=== PATIENT | female | born 1990 | race Caucasian/White ===

== ENCOUNTER → 2024-12-13 | Emergency (ER) | payer BC ==
[~2024-12-13] VITALS: Ht 172.7 cm; Wt 88.6 kg
[~2024-12-13] MED LIST: MESSAGE TO NURSING IV ONE; NITR100C6 PO; RANI-648 PO; heparin 10,000 units/1 ML INJ IV PRN; heparin 25,000 UNIT/250ml bag 250 ML IV PRN; iohexol 350MG/ML 100ml bottle IV ONE
--- NOTE | 2024-12-13 06:32 | ELECTROCARDIOGRAPH REPORT ---
[facility] Test Date: 2024-12-13 Test Time: 06:30:23 Pat Name: REMY FLETCHER Department: EMERGENCY ROOM Patient ID: [id number] Room: Gender: F Sales Coordinator: PM : 1990 Requested By: ELENA MERCADO Order Number: [id number] Reading MD: Dr. Shahbaz Marie Measurements Intervals [place] Rate: 115 P: 66 [place]: 155 QRS: 41 QRSD: 93 T: -14 QT: 336 QTc: 465 Interpretive Statements Sinus tachycardia Probable left atrial enlargement Nonspecific T abnormalities, diffuse leads Electronically Signed On 12-14-2024 10:24:[address] Shahbaz Marie Please click the below link to view image of tracing.
--- NOTE | 2024-12-13 06:39 | Physician Documentation ---
History of Present Illness ~ Stated Complaint: CHEST PAIN Time Seen by MD: 06:50 Primary Medical Doctor: MUKESH [facility] This is a very pleasant 34-year-old female with no significant risk factors who comes in for evaluation of shortness a breath at suddenly woke her from sleep in the middle of the night approximately 6 hours prior to arrival. No obvious trigger provocation. The particular palliating factors. It is exertional in its nature. It is accompanied by substernal chest pain that is moderate to severe in its intensity. Nonradiating, not migratory. Did not attempt to treat it. She does report that four weeks ago she had a foot surgery, she is still in immobilizer but. No family history of blood clots, DVT, PE, factor five [place]. She occasionally smokes marijuana, but does not do tobacco, sympathomimetics. Medication Reconciliation Allergies: Coded Allergies: No Known Allergies (Unverified , 05/21/14) Scheduled Nitrofurantoin Monohyd/M-Cryst (Macrobid 100 mg Capsule), 1 CAP PO BID Ranitidine HCl (Zantac), 1 TABLET PO ONCE Past Medical History Past Medical History: No Pertinent History Past Surgical History: no surgical history Alcohol Use: None Drug Use: none Lives with: Spouse Lives In: Home Review of Systems ROS 10 point review of systems was performed and unless noted above in HPI is negative for acute process/complaint. Physical Exam Physical Exam GENERAL: Awake, alert, oriented, GCS 15, no apparent distress, non-toxic appearing, answers questions, follows commands appropriately. Examined in triage and subsequently placed in bed 3. HEENT: Atraumatic, normocephalic, pupils equal, extraocular muscles intact, sclerae anicteric, mucus membranes moist, oropharynx is clear, no stridor. NECK: supple, full active range of motion, trachea midline, no thyromegaly, no lymphadenopathy, no JVD. CARDIOVASCULAR: Tachycardic and regular rate/rhythm, no murmurs/gallops/rubs, Pulses are 2+ in all extremities and symmetric. Capillary refill less than 2 seconds. PULMONARY: Nonlabored, good air movement ,no respiratory distress, speaking in full sentences, clear to auscultation bilaterally, no wheezing, no ronchi, no rales, no accessory muscle use. GASTROINTESTINAL: Soft, non-tender, non-distended, normal active bowel sounds, n o organomegaly, no pulsatile masses, no CVA tenderness. NEUROLOGIC: Lucid with normal mental status. Normal facial symmetry. Moves all extremities symmetrically and with purpose. No truncal ataxia. Speech is fluid without evidence of dysarthria or aphasia, no focal deficits appreciated. MUSCULOSKELETAL: There is full range of motion of all extremities. There is no joint pain or joint swelling or joint erythema. There is no muscle pain or tenderness or swelling. EXTREMITIES: warm, well-perfused, no cyanosis, no clubbing, no edema, no acute deformities. Skin: warm, dry, no rashes or lesions, no jaundice, no petechiae orpurpura. No ecchymosis. PSYCHIATRIC: Normal affect, normal insight, normal concentration. Focused exam: [] Progress Results/Orders Results/Orders Orders - AIME MERCADO DO Chest,Single View (12/13/24 06:27) Monitor (12/13/24 06:27) Saline Lock (12/13/24:27) Oxygen (12/13/24 06:27) Cta Chest Pe (12/13/24 07:40) Heparin 10,000 Unit/Ml 1ml (Heparin 10,0 (12/13/24 07:40) Cbc/Diff (12/14/24 03:00) Cbc/Diff (12/15/24 03:00) Cbc/Diff (12/16/24 03:00) Cbc/Diff (12/17/24 03:00) Cbc/Diff (12/18/24 03:00) Heparin 25,000 Unit/250ml Bag (Heparin 2 (12/13/24 07:55) Cardiac Ptt (12/13/24 14:35) Completed Orders - AIME MERCADO DO Chest,Single View (12/13/24 06:27) Cbc/Diff (12/13/24 06:27) BMP (12/13/24 06:27) PBNP (12/13/24 06:27) Electrocardiogram (12/13/24 06:27) Hs Troponin I W Calculations (12/13/24 06:27) Hs Troponin I W Calculations (12/13/24 08:27) Hs Troponin I W Calculations (12/13/24 09:27) Cta Chest Pe (12/13/24 07:40) Hcg, Ur Ql (12/13/24 06:47) Morphine 4mg/Ml Inj. (Morphine Inj.) (12/13/24 06:50) Normal Saline 1000ml (Sodium Chloride 10 (12/13/24 06:50) Iohexol 350mg/Ml 100ml (Omnipaque 350mg/ (12/13/24 07:04) Heparin Drip Dvt/Pe*Rph Dose (Heparin (12/13/24 07:40) Pt Inr (12/13/24 07:39) PTT (12/13/24 07:39) Heparin 10,000 Unit/Ml 1ml (Heparin 10,0 (12/13/24 07:40) Heparin 25,000 Unit/250ml Bag (Heparin 2 (12/13/24 07:40) Message To Nursing (12/13/24 08:00) Normal Saline 1000ml (Sodium Chloride 10 (12/13/24 09:40) Ondansetron Inj. (Zofran 4mg/2ml Vial) (12/13/24 09:40) Alteplase 50mg Inj. (Activase 50mg Inj.) (12/13/24 14:45) Medications Received in ER Medications (Trade) Dose Ordered Sig/Marianne Route PRN Reason Start Time Stop Time Status Last Admin Dose Admin (heparin 10,000 unit/ml 1ml inj) 7,100 units ONCE ONCE IV 12/13/24 07:40 12/13/24 11:23 DC 12/13/24 08:00 7,100 UNITS Heparin Sodium/ Dextrose 250 ml @ 16 mls/hr [id number] PRN IV TO MAINTAIN PTT WITHIN RANGE 12/13/24 07:55 12/13/24 08:06 16 MLS/HR Sodium Chloride 1,000 ml @ 1,000 mls/hr ONCE ONCE IV 12/13/24 09:40 12/13/24 11:23 DC 12/13/24 09:44 1,000 MLS/HR (Zofran 4mg/2ml vial) 8 mg ONCE ONCE IM 12/13/24 09:40 12/13/24 11:23 DC 12/13/24 09:45 8 MG Vital Signs 12/13/24 12/13/24 12/13/24 12/13/24 06:29 06:45 06:48 07:08 Temp 97.2 97.2 Pulse 112 111 Resp 17 17 18 27 B/P (MAP) 99/70 98/68 (78) Pulse Ox 98 97 12/13/24 12/13/24 07:14 09:16 Temp 97.2 Pulse 108 Resp 27 17 B/P (MAP) 91/71 (78) Pulse Ox 98 Laboratory Tests Test 12/13/24 06:31 12/13/24 06:55 12/13/24 08:40 12/13/24 09:52 White Blood Count 16.1 H Red Blood Count 4.65 Hemoglobin 13.4 Hematocrit 40.2 Mean Corpuscular Volume 86.4 Mean Corpuscular Hemoglobin 28.9 Mean Corpuscular Hemoglobin Concent 33.4 Red Cell Distribution Width 13.5 Platelet Count 243 Mean Platelet Volume 8.3 Neutrophils (%) (Auto) 84.5 H Lymphocytes (%) (Auto) 12.2 L Monocytes (%) (Auto) 2.5 Eosinophils (%) (Auto) 0.3 Basophils (%) (Auto) 0.5 Neutrophils # (Auto) 13.6 H Lymphocytes # (Auto) 2.0 Monocytes # (Auto) 0.4 Eosinophils # (Auto) 0.0 Basophils # (Auto) 0.1 CBC Comment Prothrombin Time 10.0 INR International Normalized Ratio 1.0 Activated Partial Thromboplast Time 26 Coagulation Comments Sodium Level 137 Potassium Level 4.4 Chloride Level 104 Carbon Dioxide Level 19.9 L Anion Gap 13 Blood Urea Nitrogen 14 Creatinine 1.18 H Estimated GFR/1.73 m2 52 BUN/Creatinine Ratio 11.9 Glucose Level 241 H Calcium Level 8.8 Troponin I High Sensitivity 1127 *H 1570 *H 1346 *H Pro-B-Type Natriuretic Peptide 1986 H Albumin 3.0 L Chemistry Comments Urine HCG, Qualitative Negative Troponin I High Sens Percent Delta 39 14 Troponin I Hi Sens Absolute Change 443 -224 EKG/XRAY/CT/US/VASC/MRI EKG : Additional Comment EKG obtained protocol and interpreted by myself shows sinus tachycardic, rate of 115, normal DE interval, narrow QRS, no QT prolongation, normal axis, S1 Q3 T3 noted. No STEMI. Medical Decision Making Findings Facility Status: ED Holds, E process The plan was discussed with the patient, who demonstrates clear understanding of the plan and is in agreement with the plan unless otherwise noted in the chart. All questions have been answered, all concerns were addressed unless otherwise documented. I was available throughout their ED stay for frequent reassessment and q uestions. Differential Diagnoses (considered and possible or likely): [Differential d iagnosis considered includes chest wall pain, pleurisy, pneumonia, pulmonary embolus, GERD, esophagitis, gastritis, anxiety, stress reaction, costochondritis, acute coronary syndrome, aortic dissection, pericarditis, myocarditis, or pneumothorax.] ??Differential Diagnoses (considered and unlikely, not requiring evaluation currently): [Aortic/great vessels dissection was considered but it is unlikely based on absence of ripping, tearing, migratory chest pain, absence of syncope or focal neurologic deficits, physical examination indicating equal and symmetric pulses.] MDM Data Please see [facility] for the following: Independent Historians and external Records Review. Historian: [Patient] Independent Historians: ?[Has been, record review] Medication Management: [Reviewed medication list] Social History and determinants: [Reviewed] Please see the body of the note for the following: Any independent interpr etations of ECG, imaging studies. All vitals signs/haemodynamics, ordered tests were independently reviewed and interpreted by myself. Nursing triage complaint and vitals reviewed, additional nursing notes were reviewed as available and I agree unless otherwise noted or documented in contradiction in the chart Vital Signs: Independently reviewed Labs: Independently interpreted Imaging: Independently interpreted Old Medical Records: Independently reviewed, see [facility] for relevant summary and information Pulse Oximetry: [97%] interpreted as [normal on room air] by me [Deck Hand: Tachycardic Rate, Regular rhythm, no ectopy, sinus tachycardia. reviewed and interpreted by me] Additionally notably showing: [Hemodynamics reviewed. The patient is not febrile, tachycardic, with a soft blood pressures, tachypneic, not hypoxic. CBC shows leukocytosis 94% neutrophilic predominance. Chemistry shows mild BALTAZAR, elevated glucose, elevated BNP and markedly elevated troponin. This is concerning for either NSTEMI or right heart strain. She is not . CT angiography of the chest was performed and on my independent interpretation there is a very large clot burden with a saddle PE in the right heart strain. Radiology read isn't available with a this time.] Tests considered but not ordered include: [D-dimer has been considerably given tachycardia, recent surgery, and S1 Q3 T3 on EKG, we will obtain CTA] Social Determinants of Health Impact: Patient was evaluated in [facility], or [facility] [place] to healthcare due to below par ratio of patient to medical providers. [] Comorbid Conditions Impacting Present Evaluation and Care/Treatment: [Patient is on control, recent surgery] Management Discussions with other Healthcare Providers: [Transfer center, human services program specialist Anup mancuso who discussed the case with the interventional radiology at his facility and requests we administer half dose, 50 mg, of alteplase] Treatment and Disposition Medication Management (Given or considered): [Heparin drip]. See EMR for details Consideration for Hospitalization/Escalation/Deescalation of Care: Transfer for critical care management IR evaluation is necessary for management of the submassive PE with a borderline hemodynamics. ?ED Course:?[Unfortunately patient's blood pressure did not significantly improve and remained fairly low despite of fluid resuscitation.] ?Shared decision making:?[] Code status:?FULL Please see the full Electronic Medical Record for full details of nursing documentation, medications list, other records of complete past medical history and conditions, vital signs, laboratory studies, and any radiologic study interpretations by radiologists. Portions of this note were completed using Medication Review dictation software and as a result there may exist minor errors in spelling. I have reviewed elements of past family and social history and agree as included in note. Departure Impression: Primary Impression: Saddle pulmonary embolus Additional Impressions: Elevated troponin Elevated brain natriuretic peptide (BNP) level Condition: Critical Referrals: NO PRIMARY CARE PROVIDER (PCP) Education Educated: Patient, Family Educated regarding: diagnosis, treatment, prognosis, other (Need for transfer) Critical Care Note Critical Care Note CRITICAL CARE TIME: [75 ] minutes Treatments/Evaluations: Close monitoring and treatment of unstable vital signs, cardiorespiratory, and neurologic status, while maintaining tight balance of fluid, respiratory, and cardiac interventions. This time includes discussing the case with the patient and the patients family. This time does not include all procedures stated elsewhere in this record. This time also includes reviewing old records, labs and radiological studies. This time includes examining and re- examining the patient. Additionally, this time also includes arranging care with admitting and consulting physicians. Signature Scribe Signature: No scribe Attestation: This note accurately reflects clinical decisions, work performed by myself, Aime Mercado, AIME VANEGAS DO Dec 13, 2024 06:39
[2024-12-13 06:48] LABS: BASOPHILS # (AUTO) 0.1 X10'3 (0-0.2); BASOPHILS % (AUTO) 0.5 % (0-1); EOSINOPHILS % (AUTO) 0.3 % (0-6); HEMATOCRIT 40.2 % (35.0-45.0); HEMOGLOBIN 13.4 g/dl (12.0-16.0); LYMPHOCYTES % (AUTO) 12.2 % (21-51); MEAN CORPUSCULAR HEMOGLOBIN 28.9 PG (27.0-31.0); MEAN CORPUSCULAR HGB CONC 33.4 g/dL (33.0-36.5); MEAN CORPUSCULAR VOLUME 86.4 FL (78-98); MEAN PLATELET VOLUME 8.3 FL (7.4-10.4); MONOCYTES # (AUTO) 0.4 X10'3 (0-0.9); MONOCYTES % (AUTO) 2.5 % (2-12); NEUTROPHILS # (AUTO) 13.6 X10'3 (1.8-7.7); NEUTROPHILS % (AUTO) 84.5 % (42-75); PLATELET COUNT 243 X10'3 (140-440); RED BLOOD COUNT 4.65 X10'6 (4.20-5.60); RED CELL DISTRIBUTION WIDTH 13.5 % (11.5-14.5); WHITE BLOOD COUNT 16.1 X10'3 (4.5-11.0)
--- NOTE | 2024-12-13 06:56 | RADIOLOGY REPORT ---
EXAM: XR Chest, 1 View CLINICAL INDICATION: Pain TECHNIQUE: Frontal view of the chest. COMPARISON: No relevant prior studies available. FINDINGS: LUNGS AND PLEURAL SPACES: Unremarkable. No consolidation. No pneumothorax. HEART: Unremarkable. No cardiomegaly. MEDIASTINUM: Unremarkable. Normal mediastinal contour. BONES/JOINTS: Unremarkable. No acute fracture. IMPRESSION: No acute cardiopulmonary process.
[2024-12-13] MEDS: morphine 4 MG/ML inj SYRINge IV ONE (07:08)
[2024-12-13] MEDS: normal saline 1000ml 1,000 ML IV ONE ×2 (07:08→09:44)
[2024-12-13 07:10] LABS: ANION GAP 13 (8-16); BLOOD UREA NITROGEN 14 MG/DL (7-18); BUN/CREATININE RATIO 11.9 (10.0-20.0); CALCIUM 8.8 MG/DL (8.5-10.1); CHLORIDE 104 MMOL/L (99-107); CREATININE 1.18 MG/DL (0.40-0.90); GLUCOSE 241 MG/DL (70-104); POTASSIUM 4.4 MMOL/L (3.5-5.1); PRO BRAIN NATRIURETIC PEPTIDE 1986 PG/ML (0-125); SODIUM 137 MMOL/L (135-145); TOTAL CARBON DIOXIDE 19.9 MMOL/L (24-32); eCRCL 68 ML/MIN; eGFR 52 ML/MIN
[2024-12-13 07:32] LABS: URINE HCG NEGATIVE (NEG)
[2024-12-13] MEDS: heparin 10,000 units/1 ML INJ IV ONE (08:00)
[2024-12-13] MEDS: heparin 25,000 UNIT/250ml bag 250 ML IV PRN (08:06)
[2024-12-13 08:11] LABS: APTT 26 SECONDS (22-32)
--- NOTE | 2024-12-13 08:15 | RADIOLOGY REPORT ---
CTA Chest with intravenous contrast INDICATION: SOb, post op, tachy COMPARISON: Chest radiograph performed earlier same date. TECHNIQUE: Multidetector spiral CTA of the chest was performed of the chest with 100 cc of Omnipaque 350 intravenous contrast. PULMONARY ANGIOGRAPHY PROTOCOL was utilized using a bolus-tracking techniqu e centered on the main pulmonary artery. Coronal and sagittal multiplanar and MIP reformats were perf ormed. Radiation Dose : 1. Chest: CTDI volume is 18.6 mGy. Dose-length product is 591.8 mGy*cm The dose indicators for CT are the volume Computed Tomography (CT) Dose Index (CTDIvol) and the Dose Length Product (DLP), and are measured in units of mGy and mGy-cm, respectively. These indicators are not patient dose, but values generated from the CT scanner acquisition factors. The report includes radiation exposure data for exposures received during this examination. FINDINGS: Pulmonary artery: There are several filling defects for example in the main pulmonary artery, right a nd left pulmonary arteries and all of the lobar and segmental branches in the right and left pulmonar y arteries. The main pulmonary artery measures 3.2 cm, slightly dilated. Lower neck: Unremarkable thyroid. No neck mass. Lungs: No focal pulmonary consolidation. No suspicious nodule or mass. Central airways: Patent. Pleura: No pneumothorax. No pleural effusions. Heart/Vascular Structures: The heart is enlarged. RV to LV ratio measures 1.4. No pericardial effusi on. Thoracic aorta is normal in caliber. No aneurysm or dissection. Lymph Nodes: No mediastinal or hilar lymphadenopathy. Esophagus:Grossly unremarkable. Musculoskeletal: Unremarkable. Body wall: Unremarkable. Upper abdomen: Unremarkable. IMPRESSION: 1. Saddle pulmonary embolism and several pulmonary emboli involving the entire bilateral pulmonary ar terial tree. RV to LV ratio measures 1.4 consistent with right heart strain. Mild cardiomegaly.
[2024-12-13] MEDS: HEPARIN DRIP DVT/PE -**PHARMACIST TO DOSE IV ONE (08:19)
[2024-12-13] MEDS: MESSAGE TO NURSING IV ONE (08:20)
[2024-12-13 09:16] VITALS: TEMP 97.2
[2024-12-13] MEDS: ondansetron/PF 4mg/2ml inj IM ONE (09:45)
[2024-12-13 15:59] VITALS: BP 113/82; PULSE 114; RESP 23; O2SAT 97
== END | disposition home or self-care (01) ==
LOC: ER 06:26
DX: I26.92 Saddle embolus of pulmonary artery without acute cor pulmonale (principal); R79.89 Other specified abnormal findings of blood chemistry; Z79.899 Other long term (current) drug therapy
CPT/HCPCS: 36415; 71045; 71275; 80048; 81025; 83880; 84484; 85025; 85610; 85730; 93005; 96361; 96365; 96366; 96367; 96372; 96375; 96376; 99291; 99292; J1644; J2270; J2405; J2997; J7030; Q9967

== ENCOUNTER 2025-01-14 20:08 | Emergency (ER) | payer BC ==
[~2025-01-14] VITALS: Ht 172.7 cm; Wt 79.4 kg
[~2025-01-14 20:08] MED LIST changes: -MESSAGE TO NURSING IV ONE; -heparin 10,000 units/1 ML INJ IV PRN; -heparin 25,000 UNIT/250ml bag 250 ML IV PRN; -iohexol 350MG/ML 100ml bottle IV ONE
[2025-01-14 20:14] VITALS: BP 131/84; PULSE 72; RESP 15; O2SAT 99
--- NOTE | 2025-01-14 22:36 | ELECTROCARDIOGRAPH REPORT ---
[facility] Test Date: 2025-01-14 Test Time: 22:34:28 Pat Name: REMY FLETCHER Department: [facility] Patient ID: [id number] Room: Gender: F Tree Pruner: : 1990 Requested By: MAT GONSALES Order Number: [id number] Reading MD: Dr. Shahbaz Marie Measurements Intervals [place] Rate: 60 P: 56 [place]: 151 QRS: 79 QRSD: 89 T: 42 QT: 415 QTc: 415 Interpretive Statements Sinus rhythm Electronically Signed On 01-14-2025 22:57:[address] Shahbaz Marie Please click the below link to view image of tracing.
--- NOTE | 2025-01-14 22:56 | RADIOLOGY REPORT ---
CHEST RADIOGRAPH Indication: right chest pain with inspiration, covid + Technique: Single frontal view of the chest was obtained Comparison: CT CTA CHEST PE W/ IV CONTRAST on DOS: 12/13/24, DI CHEST,SINGLE VIEW on DOS: 12/13/24 FINDINGS: Lines and Tubes: None Lungs: No focal consolidation. Pleura: No effusion or pneumothorax. Cardiomediastinal contours: Unremarkable Bones: No acute osseous abnormality. IMPRESSION: 1. No acute cardiopulmonary disease.
--- NOTE | 2025-01-14 23:31 | Physician Documentation ---
History of Present Illness ~ Chief Complaint: Cold, cough & congestion Stated Complaint: COLD/FLU SYMPTOMS Time Seen by MD: 22:01 OK to notify your PCP?: Yes Primary Medical Doctor: MUKESH Source: patient Mode of Arrival: POV Exam Limitations: no limitations HPI 34-year-old female presents with right-sided chest pain which is worse with a deep breath which radiates into her back. She has a history of pulmonary em bolism his last hot hospitalized last month here for it. She has been taking Eliquis 5 mg twice daily ever since. She did have a CT of her chest as well as the ultrasound of her leg through [facility] last week but has not received the results yet. She is positive for COVID and is concerned for a possible PE or pneumonia. She denies any cough, fevers. She has had a sore throat and a headache but states that her symptoms currently do not feel like when she had a PE or when she had prior COVID infections. Medication Reconciliation Allergies: Coded Allergies: No Known Allergies (Unverified , 05/21/14) Scheduled Nitrofurantoin Monohyd/M-Cryst (Macrobid 100 mg Capsule), 1 CAP PO BID Ranitidine HCl (Zantac), 1 TABLET PO ONCE Past Medical History Past Medical History: No Pertinent History Past Surgical History: no surgical history Last Menstrual Period: Dec 17, 2024 Alcohol Use: None Drug Use: none Lives with: Spouse Lives In: Home Review of Systems All Other Systems at this time: Reviewed and Negative Physical Exam Vital Signs: RN Vital Signs have been reviewed: Yes, Temperature: 96.8, Source: Temporal, Heart Rate: 72, Respiratory Rate: 15, BP: 131/84, Pulse Oximetry: 99, Weight: 79.400 Pulse Oximetry Reflects: adequate oxygenation Physical Exam General: Alert, no apparent distress. HEENT: PERRL, EOMI, no injection, moist mucous membranes. Neck: Full range of motion. Respiratory: Lungs clear, no respiratory distress. Chest: No accessory muscle use. Cardiovascular: Regular rate and rhythm, no murmurs. Gastrointestinal: Soft, nontender, nondistended. Bowels sounds present. Extremities: Normal range of motion, no deformity. Walking boot to left lower extremity. Neurologic: Oriented x4. Psychiatric: Normal mood and affect. Skin: Normal color, warm and dry. No edema, no ecchymosis. Progress Results/Orders Reviewed/noted all lab results: Yes Results/Orders Orders - MADAI WILLETT DIRECTOR STAGE Chest,Single View (01/14/25 22:29) Electrocardiogram (01/14/25 22:21) Completed Orders - MADAI WILLETT DIRECTOR STAGE Chest,Single View (01/14/25 22:29) Electrocardiogram (01/14/25 22:21) Vital Signs 01/14/25 20:14 Temp 96.8 Pulse 72 Resp 15 B/P (MAP) 131/84 Pulse Ox 99 EKG/XRAY/CT/US/VASC/MRI EKG : Additional Comment Electrocardiogram: as interpreted by me; normal sinus rhythm, no axis deviation, no acute ischemia, normal intervals, no pre-excitation pattern. Rate: 60. Chest X-Ray : Additional Comments Chest x-ray: as interpreted by me; no large effusion, no large infiltrate, normal mediastinum. Heart Score: Heart Score Response (Comments) Value History N/A 0 EKG Normal 0 Age <45 0 Risk Factors No known risk factors 0 Troponin N/A 0 Total 0 Medical Decision Making Additional info obtained from: old records Findings 34-year-old female with a history of PE presents with right chest pain worse on inspiration. She does have some pain when palpating the area as well. She is sick with COVID at this time but states her symptoms do not feel like any prior COVID infections or when she had PE. She is currently taking Eliquis 5 mg twice daily. Her physical exam is unremarkable. Her EKG was normal as well as her chest x-ray today. I discussed this case with Dr. Marie regarding need for further imaging and he recommends no further imaging needed at this time. She does have a CT and ultrasound results pending with [facility]. At this time there is no further indication for a full PE study. We discussed the if she feels any worse to return here immediately. We discussed supportive measures at home for COVID. Differential Diagnosis Pleural effusion. Pneumothorax. Pneumonia. Pleuritis. AAA. Departure Disposition: HOME / SELF CARE / HOMELESS Impression: Primary Impression: Viral respiratory illness Condition: Stable Discharge Instructions: Viral Illness, Adult Additional Instructions: Follow up with her primary care provider within the next week and return back here for any new or worsening symptoms. Referrals: NO PRIMARY CARE PROVIDER (PCP) Education Educated: Patient Educated regarding: diagnosis, treatment, prognosis, need for follow up Additional Comment Medical Screen Exam This patient recieved a medical screening examination. After reviewing the individual's medical complaints with presenting symptoms and performing an appropriate physical examination, it was determined that no immediate life- threatening emergency medical condition is present. This individual is also not a women having contractions. Signature Scribe Signature: . Attestation: Scribed for Madai Willettp by Madai Chang NP . 01/14/25 23:38 Parts of this note were created using EverPresent voice recognition software program. While efforts were made to correct any mistakes made by this voice recognition software program, nonsensical phrases may remain in this note. In addition, there may be errors and syntax, grammar, content and spelling. MADAI WILLETTP Jan 14, 2025 23:31
[2025-01-14 23:37] VITALS: TEMP 96.8
== END 2025-01-14 23:39 | disposition home or self-care (01) ==
LOC: ER 20:08
DX: J98.8 Other specified respiratory disorders (principal); Z79.01 Long term (current) use of anticoagulants; Z86.711 Personal history of pulmonary embolism
CPT/HCPCS: 71045; 93005; 99283

== ENCOUNTER 2025-03-28 16:25 | Emergency (ER) | payer BC ==
[~2025-03-28] VITALS: Ht 172.7 cm; Wt 100.0 kg
[2025-03-28 16:42] VITALS: TEMP 97.7
--- NOTE | 2025-03-28 16:49 | Physician Documentation ---
History of Present Illness ~ Chief Complaint: Chest Pain Stated Complaint: CP Time Seen by : 20:03 Primary Medical Doctor: [facility] Patient is a pleasant 34-year-old female that presents to the emergency department for evaluation of chest pain. Patient reports that she was seen here in November and diagnosed with a PE was very sick at that time. Patient was put on Eliquis. She just stopped her Eliquis yesterday. Patient reports that she has has had intermittent chest pain over the last month or 2 but today the pain is medial substernal radiating to the left hand side. She reports that the pain is slightly different than the pain that she felt when she had a PE. Patient denies any shortness of breath at this time. History as above. They suspect that her pulmonary embolism was result of control as well as recent bunion surgery. She had to be flown to tertiary care facility last time but did not require thrombectomy. TPA administered upon her diagnosis of pulmonary embolism last time. Medication Reconciliation Allergies: Coded Allergies: No Known Allergies (Unverified , 05/21/14) Scheduled Nitrofurantoin Monohyd/M-Cryst (Macrobid 100 mg Capsule), 1 CAP PO BID Ranitidine HCl (Zantac), 1 TABLET PO ONCE Past Medical History Past Medical History: No Pertinent History Past Surgical History: no surgical history Alcohol Use: None Drug Use: none Lives with: Spouse Lives In: Home Review of Systems ROS All review of systems negative except as per HPI Physical Exam Vital Signs: Temperature: 97.7, Source: Temporal, Heart Rate: 69, Respiratory Rate: 18, BP: 138/102, Pulse Oximetry: 99, Weight: 100.000 Physical Exam General: Patient is awake, alert, oriented x4 in no acute distress and well appearing.~ Head: Normocephalic and atraumatic. Eyes: Conjunctival normal. EOMI. PERRL. ENT: Mucous membranes moist. Neck: Supple, trachea is midline. Chest: Clear to auscultation bilaterally without rales, rhonchi, or wheezes. There is no accessory muscle use or retractions. Cardiac: RRR without murmurs, gallops, or rubs. Extremities: Normal strength. Normal range of motion. No deformities or edema. No calf tenderness to palpation Progress Results/Orders Results/Orders Completed Orders - DONI CANDELARIA MD D-Dimer (03/28/25 20:10) Vital Signs 03/28/25 03/28/25 03/28/25 16:42 18:58 19:23 Temp 97.7 Pulse 69 80 Resp 18 14 16 B/P (MAP) 138/102 121/85 (97) Pulse Ox 99 99 Laboratory Tests Test 03/28/25 16:31 White Blood Count 10.4 Red Blood Count 4.78 Hemoglobin 13.1 Hematocrit 39.4 Mean Corpuscular Volume 82.5 Mean Corpuscular Hemoglobin 27.5 Mean Corpuscular Hemoglobin Concent 33.4 Red Cell Distribution Width 13.3 Platelet Count 371 Mean Platelet Volume 8.0 Neutrophils (%) (Auto) 56.2 Lymphocytes (%) (Auto) 34.8 Monocytes (%) (Auto) 6.8 Eosinophils (%) (Auto) 1.5 Basophils (%) (Auto) 0.7 Neutrophils # (Auto) 5.8 Lymphocytes # (Auto) 3.6 Monocytes # (Auto) 0.7 Eosinophils # (Auto) 0.2 Basophils # (Auto) 0.1 CBC Comment D-Dimer < 0.19 D-Dimer Comment Sodium Level 140 Potassium Level 3.7 Chloride Level 104 Carbon Dioxide Level 28.9 Anion Gap 7 L Blood Urea Nitrogen 10 Creatinine 0.91 H Estimated GFR/1.73 m2 71 BUN/Creatinine Ratio 11.0 Glucose Level 113 H Calcium Level 9.3 Total Bilirubin 0.2 Aspartate Amino Transf (AST/SGOT) 27 Alanine Aminotransferase (ALT/SGPT) 28 Alkaline Phosphatase 142 H Total Protein 8.5 H Albumin 3.6 Globulin 4.9 H Albumin/Globulin Ratio 0.7 L Chemistry Comments EKG/XRAY/CT/US/VASC/MRI EKG : Additional Comment EKG interpreted by myself shows time of 16 30, rate 64, sinus rhythm, normal axis, no ST changes Medical Decision Making Additional info obtained from: old records Findings Patient presented to the emergency room with chest discomfort as per HPI. Differentials include but are not limited to pulmonary embolism, musculoskeletal pain, pneumothorax therefore emergent labs and chest x-ray ordered which were reassuring. D-dimer negative. Heart Score: 1 Differential Dx:Considerations: Include: angina, aortic dissection, chest wall pain, cholelithiasis, CHF, costochondritis, esophageal reflux/spasm, gastritis, herpes zoster, myocardial infarction, pericarditis, pleuritis, pancreatitis, pneumonia, pneumothorax, pulmonary embolus, other Departure Disposition: HOME / SELF CARE / HOMELESS Impression: Primary Impression: Chest pain Condition: Stable Discharge Instructions: Nonspecific Chest Pain, Adult Referrals: NO PRIMARY CARE PROVIDER (PCP) Signature Scribe Signature: No scribe Attestation: The note accurately reflects work and decisions made by me.Doni Candelaria MD 03/28/25 20:38 JOON JOSEPH Mar 28, 2025 16:49 DONI CANDELARIA MD Mar 28, 2025 20:13
--- NOTE | 2025-03-28 16:57 | ELECTROCARDIOGRAPH REPORT ---
[facility] Test Date: 2025-03-28 Test Time: 16:30:36 Pat Name: REMY FLETCHER Department: EMERGENCY ROOM Room: Gender: F [employer]: : [id number] Requested By: DEPARTMENT EMERGENCY Order Number: [id number] Reading MD: Measurements Intervals [place] Rate: 64 P: 53 SD: 162 QRS: 21 QRSD: 100 T: 17 QT: 420 QTc: 434 Interpretive Statements Sinus rhythm Please click the below link to view image of tracing.
--- NOTE | 2025-03-28 18:13 | RADIOLOGY REPORT ---
EXAM: DI CHEST,TWO VIEWS CLINICAL HISTORY: Chest pain, PE in November TECHNIQUE: Frontal and lateral views of the chest WID: COMPARISON: DI CHEST,SINGLE VIEW on DOS: 01/14/25 FINDINGS: Lines and tubes: None Chest: The heart size and pulmonary vasculature is within normal limits. No pleural effusion, pneumothorax, or consolidation. The osseous structures are grossly intact. IMPRESSION: 1. No acute cardiopulmonary abnormality.
[2025-03-28 18:25] LABS: MEAN PLATELET VOLUME 8.0 FL (7.4-10.4); RED CELL DISTRIBUTION WIDTH 13.3 % (11.5-14.5)
[2025-03-28 18:29] LABS: CREATININE 0.91 MG/DL (0.40-0.90); TOTAL CARBON DIOXIDE 28.9 MMOL/L (24-32); eCRCL 88 ML/MIN; eGFR 71 ML/MIN
[2025-03-28 19:23] VITALS: BP 121/85; PULSE 80; RESP 16; O2SAT 99
== END 2025-03-28 20:45 | disposition home or self-care (01) ==
LOC: ER 16:25
DX: R07.9 Chest pain, unspecified (principal); Z79.01 Long term (current) use of anticoagulants; Z79.899 Other long term (current) drug therapy
CPT/HCPCS: 36415; 71046; 80053; 85025; 85379; 93005; 99285